=== PATIENT | female | born 1975 ===

== ENCOUNTER 2017-01-02 14:29 | Observation (INO) | payer OTHER ==
[2017-01-02 14:40] VITALS: RESP 20; O2SAT 100
[2017-01-02 15:53] LABS: URINE BILIRUBIN NEGATIVE (NEGATIVE); URINE BLOOD 1+ (NEGATIVE); URINE COLOR Straw (YELLOW); URINE GLUCOSE (UA) NORMAL (Normal); URINE KETONE NEGATIVE (NEGATIVE); URINE LEUKOCYTE ESTERASE NEG Leu/uL (Negative); URINE PROTEIN NEGATIVE (NEGATIVE); URINE UROBILINOGEN NORMAL mg/dL (0.2-1.0); WBC URINE < 1 /hpf (0-5)
[2017-01-02 15:55] LABS: RBC URINE 5 /hpf (0-3); URINE BACTERIA RARE (<OCC)
[2017-01-02] MEDS ORDERED: Sodium Chloride 0.9% 1,000 ML IV ONE (16:02)
[2017-01-02] MEDS ORDERED: Iohexol 240 (50 ml) PO STA (16:02)
--- NOTE | 2017-01-02 16:02 | C.PDOC ---
History Of Present Illness 41-year-old female, presents to the emergency department with complaints of abdominal pain. Patient states she has been experiencing two-week duration of abdominal pain in lower quadrants. Pain is intermittent in nature and associated with nausea. Patient states she has a Hx of L oopherectomy. LNMP was 12/17. Denies fevers, vomiting, dizziness, diarrhea, vaginal bleeding, chills, or any other associated symptoms. No other complaints at this time. Time Seen by Provider: 01/02/17 15:23 Chief Complaint (Nursing): Abdominal Pain History Per: Patient History/Exam Limitations: no limitations Onset/Duration Of Symptoms: Days Current Symptoms Are (Timing): Still Present Severity: Moderate Location Of Pain/Discomfort: RLQ, LLQ Past Medical History Reviewed: Historical Data, Nursing Documentation, Vital Signs Vital Signs: Last Vital Signs Temp 98.6 F 01/02/17 14:39 Pulse 75 01/02/17 14:39 Resp 20 01/02/17 14:39 BP 101/65 01/02/17 14:39 Pulse Ox 100 01/02/17 16:33 Surgical History: Family History: States: Unknown Family Hx - Social History Hx Tobacco Use: No Hx Alcohol Use: Yes Hx Substance Use: No - Immunization History Hx Tetanus Toxoid Vaccination: No Hx Influenza Vaccination: No Hx Pneumococcal Vaccination: No Review Of Systems Except As Marked, All Systems Reviewed And Found Negative. Constitutional: Negative for: Fever, Chills Cardiovascular: Negative for: Chest Pain, Palpitations Respiratory: Negative for: Cough, Shortness of Breath Gastrointestinal: Positive for: Nausea, Abdominal Pain. Negative for: Vomiting , Diarrhea Genitourinary: Negative for: Dysuria, Frequency, Vaginal Discharge, Vaginal Bleeding Musculoskeletal: Negative for: Back Pain Physical Exam - Physical Exam Appears: Non-toxic, No Acute Distress Skin: Warm, Dry, No Rash Head: Atraumatic, Normacephalic Eye(s): bilateral: Normal Inspection, PERRL, EOMI Nose: Normal Oral Mucosa: Moist Lips: Normal Appearing Neck: Normal ROM Chest: Symmetrical Cardiovascular: Rhythm Regular Respiratory: No Accessory Muscle Use Gastrointestinal/Abdominal: Soft, Tenderness (MILD TENDERNESS IN LLQ), No Guarding, No Rebound Extremity: Normal ROM Neurological/Psych: Oriented x3, Normal Speech ED Course And Treatment - Laboratory Results Result Diagrams: 01/02/17 16:27 01/02/17 16:27 O2 Sat by Pulse Oximetry: 100 ED OBSERVATION Discharge: Yes Date of observation admission: 01/02/17 Time of observation admission: 15:00 - Observation admission statement Patient is being placed in observation because:: ABD PAIN - Goals of Observation Goals of observation are:: NEG ACUTE ABD; SX IMPROVE - Progress Note Progress Note: 01/02/17 18:30 EXAM NEG NAD APPEARS COMFORTABLE. CT, LABS WNL. ADVISED FU OBGYN Disposition Counseled Patient/Family Regarding: Studies Performed, Diagnosis, Need For Followup - Disposition Disposition: HOME/ ROUTINE Disposition Time: 18:31 Condition: GOOD - Clinical Impression Clinical Impression: Abdominal pain - Scribe Statement The provider has reviewed the documentation as recorded by the Savita Pinzon All medical record entries made by the Katelynibamanda were at my direction and personally dictated by me. I have reviewed the chart and agree that the record accurately reflects my personal performance of the history, physical exam, medical decision making, and the department course for this patient. I have also personally directed, reviewed, and agree with the discharge instructions and disposition.
[2017-01-02] MEDS ORDERED: Iohexol 240 (50 ml) ONE (16:12)
[2017-01-02] MEDS ORDERED: Morphine 4 MG/ML VIAL ONE (16:12)
[2017-01-02] MEDS ORDERED: Sodium Chloride 0.9% 1,000 ML ONE (16:12)
[2017-01-02 16:40] LABS: BASO # 0.1 K/uL (0.0-0.2); BASO % 0.8 % (0.0-2.0); EOS # 0.2 K/uL (0.0-0.7); EOS % 2.1 % (0.0-4.0); HEMATOCRIT 34.5 % (34.0-47.0); LYMPH # 2.4 K/uL (1.0-4.3); LYMPH % 33.1 % (20.0-40.0); MEAN CORPUSCULAR HEMOGLOBIN 28.4 pg (27.0-31.0); MEAN CORPUSCULAR HGB CONC 32.7 g/dL (33.0-37.0); MONO # 0.5 K/uL (0.0-0.8); MONO % 7.1 % (0.0-10.0); RED CELL DISTRIBUTION WIDTH 14.3 % (11.5-14.5); WHITE BLOOD COUNT 7.3 K/uL (4.8-10.8)
[2017-01-02 16:49] LABS: CHLORIDE 99 mmol/L (98-107); SODIUM 138 mmol/L (132-148)
[2017-01-02 16:51] LABS: BILIRUBIN,TOTAL 0.2 mg/dL (0.2-1.3); CARBON DIOXIDE 29 mmol/L (22-30); GFR AFRICAN-AMERICAN > 60
[2017-01-02 16:52] LABS: ALB/GLOB RATIO 1.2 (1.0-2.1); ALKALINE PHOSPHATASE 51 U/L (38-126); ALT/SGPT 21 U/L (9-52); AST/SGOT 22 U/L (14-36); BLOOD UREA NITROGEN 8 mg/dL (7-17); CALCIUM 8.3 mg/dl (8.6-10.4); GLUCOSE,RANDOM 106 mg/dL (65-105); TOTAL PROTEIN 6.9 g/dL (6.3-8.3)
[2017-01-02] MEDS ORDERED: Iohexol 300 100 ML IJ ONE (17:12)
--- NOTE | 2017-01-02 18:06 | CT ---
PROCEDURE: CT Abdomen and Pelvis with oral and IV contrast. HISTORY: abd pain LLQ PAIN; R OOPHRECTOMY COMPARISON: Abdominal ultrasound performed 09/12/16 TECHNIQUE: Contiguous axial images of the abdomen and pelvis. Oral and IV contrast was administered. Coronal and Sagittal reformats generated and reviewed. Contrast dose: 100 cc Omnipaque 300 Radiation dose: Total exam DLP = 759.23 mGy-cm. FINDINGS: LOWER THORAX: No visible consolidation, pleural effusion, or pneumothorax. LIVER: Hypoattenuation of the liver compatible with hepatic steatosis. GALLBLADDER AND BILE DUCTS: Unremarkable. PANCREAS: Unremarkable. SPLEEN: At least 3 sub cm probable splenules. Otherwise unremarkable. ADRENALS: Unremarkable. KIDNEYS AND URETERS: The kidneys enhance symmetrically. No hydronephrosis or obstructing renal calculus. BLADDER: Distended urinary bladder. REPRODUCTIVE: Uterus is present. APPENDIX: The appendix appears within normal limits of caliber. No secondary signs of acute appendicitis. BOWEL: The stomach is nondistended. The bowel loops appear within normal limits of caliber without evidence of intestinal obstruction. PERITONEUM: Small pelvic free fluid. No definite free air. LYMPH NODES: No bulky lymphadenopathy identified. VASCULATURE: No aortic aneurysm. BONES: No acute osseous abnormality is detected. OTHER FINDINGS: None. IMPRESSION: Hepatic steatosis. Small pelvic free fluid, likely physiologic.
[2017-01-02 18:54] VITALS: BP 97/67; PULSE 50; TEMP 98.4
== END 2017-01-02 18:31 | disposition home or self-care (01) ==
LOC: C.ER 14:29 → C.9OBSV 15:00
PROVIDERS: ADMIT Emergency Medicine; ATTEND Emergency Medicine
DX: R10.30 Lower abdominal pain, unspecified (principal); R11.0 Nausea; Z90.721 Acquired absence of ovaries, unilateral

== ENCOUNTER 2018-12-08 16:13 | Outpatient (CLI) | payer OTHER | END 2018-12-08 16:14 | disposition home or self-care (01) | LOC: C.MAMMO 16:13 | DX: Z12.31 Encounter for screening mammogram for malignant neoplasm of breast (principal) ==

== ENCOUNTER 2018-12-09 08:21 | Outpatient (CLI) | payer OTHER | END 2018-12-09 08:22 | disposition home or self-care (01) | LOC: C.LAB 08:21 | DX: Z01.419 Encounter for gynecological examination (general) (routine) without abnormal findings (principal) ==

== ENCOUNTER 2019-01-24 23:30 | Observation (INO) | payer OTHER ==
[2019-01-25] MEDS ORDERED: Iohexol 240 (50 ml) PO ONE
[2019-01-25] MEDS ORDERED: Sodium Chloride 0.9% 1,000 ML IV ONE ×2 (00:01→03:40)
--- NOTE | 2019-01-25 00:02 | C.PDOC ---
History Of Present Illness 43 year old female presents to the ED c/o periumbilical abdominal pain associated with nausea and diarrhea. Patient denies fever, chills, vomit, rash, dysuria, hematuria, recent travel. Chief Complaint (Nursing): Abdominal Pain History Per: Patient History/Exam Limitations: no limitations Onset/Duration Of Symptoms: Days Current Symptoms Are (Timing): Still Present Location Of Pain/Discomfort: RLQ, LLQ Radiation Of Pain To:: None Quality Of Discomfort: "Pain" Associated Symptoms: Nausea, Diarrhea. denies: Vomiting, Urinary Symptoms Recent travel outside of the [place]: No Additional History Per: Patient Abnormal Vaginal Bleeding: No Past Medical History Reviewed: Historical Data, Nursing Documentation, Vital Signs Vital Signs: Last Vital Signs Temp 98.2 F 01/24/19 23:32 Pulse 65 01/24/19 23:32 Resp 18 01/24/19 23:32 BP 107/70 01/24/19 23:32 Pulse Ox 99 01/24/19 23:32 - Medical History PMH: No Chronic Diseases Surgical History: Family History: States: Unknown Family Hx - Social History Hx Tobacco Use: No Hx Alcohol Use: Yes Hx Substance Use: No - Immunization History Hx Tetanus Toxoid Vaccination: No Hx Influenza Vaccination: No Hx Pneumococcal Vaccination: No Review Of Systems Constitutional: Negative for: Fever, Chills Cardiovascular: Negative for: Chest Pain Respiratory: Negative for: Shortness of Breath Gastrointestinal: Positive for: Nausea, Abdominal Pain, Diarrhea Genitourinary: Negative for: Dysuria Musculoskeletal: Negative for: Back Pain Skin: Negative for: Rash Neurological: Negative for: Weakness, Numbness Physical Exam - Physical Exam Appears: Non-toxic, In Acute Distress Skin: Normal Color, Warm, Dry Head: Atraumatic, Normacephalic Eye(s): bilateral: Normal Inspection Neck: Normal ROM, Supple Chest: Symmetrical Cardiovascular: Rhythm Regular Respiratory: Normal Breath Sounds, No Rales, No Rhonchi, No Wheezing Gastrointestinal/Abdominal: Soft, Tenderness (periumbilical and bilateral lower quadrants R>L), No Guarding, No Rebound Back: No CVA Tenderness Extremity: Normal ROM, No Tenderness, No Swelling Neurological/Psych: Oriented x3, Normal Speech, Normal Cognition Gait: Steady ED Course And Treatment - Laboratory Results Result Diagrams: 01/25/19 00:29 01/25/19 00:29 O2 Sat by Pulse Oximetry: 99 (ON RA) Pulse Ox Interpretation: Normal Medical Decision Making Medical Decision Making: Plan: * CT abd/pelvis * Labs * IV fluids * Toradol 30 mg IVP * UA Disposition Discussed With : Alen Casey Doctor Will See Patient In The: Hospital Counseled Patient/Family Regarding: Diagnosis - Disposition Disposition: HOSPITALIZED Disposition Time: 03:55 Condition: STABLE - Clinical Impression Clinical Impression: Diarrhea, Inflammatory bowel disease, Abdominal pain - Scribe Statement The provider has reviewed the documentation as recorded by the Scribe Fred Keen All medical record entries made by the Katelynibe were at my direction and personally dictated by me. I have reviewed the chart and agree that the record accurately reflects my personal performance of the history, physical exam, medical decision making, and the department course for this patient. I have also personally directed, reviewed, and agree with the discharge instructions and disposition.
[2019-01-25] MEDS ORDERED: Iohexol 240 (50 ml) ONE (00:15)
[2019-01-25] MEDS ORDERED: Sodium Chloride 0.9% 1,000 ML ONE (00:15)
[2019-01-25 00:33] LABS: BASO % 0.4 % (0.0-2.0); EOS # 0.2 K/uL (0.0-0.7); EOS % 2.5 % (0.0-4.0); HEMOGLOBIN 13.1 g/dL (11.0-16.0); LYMPH # 1.2 K/uL (1.0-4.3); LYMPH % 19.8 % (20.0-40.0); MEAN CELL VOLUME 91.8 fL (81.0-99.0); MEAN CORPUSCULAR HEMOGLOBIN 31.5 pg (27.0-31.0); MEAN CORPUSCULAR HGB CONC 34.4 g/dL (33.0-37.0); MEAN PLATELET VOLUME 7.6 fL (7.2-11.7); MONO # 0.6 K/uL (0.0-0.8); MONO % 9.3 % (0.0-10.0); NEUT # 4.3 K/uL (1.8-7.0); NRBC % 0.1 % (0.0-2.0); RBC 4.14 Mil/uL (3.80-5.20); RED CELL DISTRIBUTION WIDTH 13.9 % (11.5-14.5); WHITE BLOOD COUNT 6.3 K/uL (4.8-10.8)
[2019-01-25 00:39] LABS: SQUAMOUS EPITHIAL 17 /hpf (0-5); URINE BACTERIA RARE (<OCC)
[2019-01-25 00:40] LABS: HCG,QUALITATIVE URINE NEGATIVE (NEGATIVE)
[2019-01-25 00:41] LABS: URINE BILIRUBIN NEGATIVE (NEGATIVE); URINE BLOOD MODERATE (NEGATIVE); URINE CLARITY Hazy (Clear); URINE COLOR YELLOW (YELLOW); URINE GLUCOSE (UA) NEGATIVE (Normal); URINE PROTEIN NEGATIVE (NEGATIVE); URINE UROBILINOGEN 0.2 mg/dL (0.2-1.0)
[2019-01-25 00:42] LABS: URINE LEUKOCYTE ESTERASE NEGATIVE Leu/uL (Negative)
[2019-01-25 00:51] LABS: ALB/GLOB RATIO 1.4 (1.0-2.1); ALBUMIN 4.1 g/dL (3.5-5.0); ALT/SGPT 21 U/L (9-52); AST/SGOT 24 U/L (14-36); BLOOD UREA NITROGEN 11 mg/dL (7-17); CALCIUM 8.8 mg/dl (8.6-10.4); GFR NON-AFRICAN AMERICAN > 60; LIPASE 144 U/L (23-300)
[2019-01-25] MEDS ORDERED: Iodixanol 320 MG/ML 100 ML BOTTLE IV ONE (01:25)
--- NOTE | 2019-01-25 04:27 | CP.PCM.HP ---
<Italia Cohen - Last Filed: 01/25/19 04:58> History of Present Illness - History of Present Illness History of Present Illness: cc: "diarrhea" Ms. Donavan Hyatt is a 43 year old female with no PMH here today for 12+ episodes watery diarrhea x2 days. She tried pepto Bismol and Tylenol to no aid. The pain is concentrated periumbilically with some radiation to the RLQ. The cramping is worse than her period, which finished last week. The diarrhea was initially yellow, then turned green with a few that were almost black. She has an associated dehydration headache as she hasn't been able to eat due to decreased appetite. She's able to drink chicken soup but feels full quickly, and then is hungry shortly later. Admits nausea and dizziness. Denies fever, chills, change in vision or hearing, sore throat, recent sickness, vomiting, chest pain, palpitations. PMH: denies Med: denies All: NKDA PSxHx: C/section, R ovarian removal FamHx: unknown SocHx: social EtOH, denies tobacco, illicit drugs. Lives at home with and kids. Works at a [employer] doing [employer]. Proxy: brother: Pipo Go [phone] Full Code Present on Admission - Present on Admission Any Indicators Present on Admission: No Review of Systems - Constitutional Constitutional: Headache. absent: Chills, Fever - EENT Eyes: absent: Blurred Vision Ears: Dizziness. absent: Decreased Hearing, Tinnitus Nose/Mouth/Throat: absent: Sore Throat - Cardiovascular Cardiovascular: absent: Chest Pain, Palpitations - Respiratory Respiratory: absent: Cough, Dyspnea, Wheezing - Gastrointestinal Gastrointestinal: Diarrhea, Nausea. absent: Constipation, Vomiting - Genitourinary Genitourinary: Voiding Freq/Small Amts. absent: Dysuria - Musculoskeletal Musculoskeletal: absent: Joint Swelling, Numbness, Stiffness, Tingling - Integumentary Integumentary: absent: Swelling - Neurological Neurological: absent: Numbness, Tingling - Hematologic/Lymphatic Hematologic: absent: Easy Bruising Past Patient History - Infectious Disease Hx of Infectious Diseases: None - Past Social History Smoking Status: Never Smoked Alcohol: None Drugs: Denies Home Situation {Lives}: With Family - PSYCHIATRIC Hx Substance Use: No - SURGICAL HISTORY Hx Surgeries: Yes Hx Section: Yes (2011) Other/Comment: Left oopehrectomy 2007 - ANESTHESIA Hx Anesthesia: Yes Hx Anesthesia Reactions: No Meds Home Medications: Home Medication List Medication Instructions Recorded Confirmed Type Ciprofloxacin [Cipro] 1 tab PO BID #14 tab 01/25/19 Rx Metronidazole [Flagyl] 250 mg PO BID #10 tablet 01/25/19 Rx Allergies/Adverse Reactions: Allergies Allergy/AdvReac Type Severity Reaction Status Date / Time No Known Allergies Allergy Verified 01/24/19 23:34 Physical Exam - Constitutional Appears: Non-toxic, No Acute Distress - Head Exam Head Exam: ATRAUMATIC, NORMOCEPHALIC - Eye Exam Eye Exam: EOMI, Normal appearance, PERRL Pupil Exam: NORMAL ACCOMODATION - ENT Exam ENT Exam: Mucous Membranes Dry - Neck Exam Neck exam: Positive for: Normal Inspection. Negative for: Lymphadenopathy, Tenderness - Respiratory Exam Respiratory Exam: Clear to Auscultation Bilateral, NORMAL BREATHING PATTERN. absent: Rales, Rhonchi, Wheezes - Cardiovascular Exam Cardiovascular Exam: REGULAR RHYTHM, +S1, +S2. absent: Gallop, Rubs, Systolic Murmur - GI/Abdominal Exam GI & Abdominal Exam: Hyperactive Bowel Sounds, Soft, Tenderness. absent: Distended, Guarding, Rebound Additional comments: TTP in periumbical region and RLQ - Rectal Exam Rectal Exam: Deferred, NORMAL INSPECTION - Extremities Exam Extremities exam: Positive for: full ROM, normal capillary refill, normal ins pection - Back Exam Back exam: absent: CVA tenderness (L), CVA tenderness (R) - Neurological Exam Neurological exam: Alert, CN II-XII Intact, Normal Gait, Oriented x3, Reflexes Normal - Psychiatric Exam Psychiatric exam: Normal Affect, Normal Mood - Skin Skin Exam: Dry, Normal Color, Warm Results - Vital Signs Recent Vital Signs: Last Vital Signs Temp 98.0 F 01/25/19 04:24 Pulse 60 01/25/19 04:24 Resp 18 01/25/19 04:24 BP 98/61 L 01/25/19 04:24 Pulse Ox 99 01/25/19 04:24 - Labs Result Diagrams: 01/25/19 00:29 01/25/19 00:29 Labs: Laboratory Results - last 24 hr 01/25/19 01/25/19 01/25/19 00:29 00:29 00:29 WBC 6.3 RBC 4.14 Hgb 13.1 Hct 38.0 MCV 91.8 MCH 31.5 H MCHC 34.4 RDW 13.9 Plt Count 255 MPV 7.6 Neut % (Auto) 68.0 Lymph % (Auto) 19.8 L [place] % (Auto) 9.3 Eos % (Auto) 2.5 Baso % (Auto) 0.4 Neut # (Auto) 4.3 Lymph # (Auto) 1.2 [place] # (Auto) 0.6 Eos # (Auto) 0.2 Baso # (Auto) 0.0 Sodium 138 Potassium 3.7 Chloride 106 Carbon Dioxide 26 Anion Gap 10 BUN 11 Creatinine 0.7 Est GFR ( Amer) > 60 Est GFR (Non-Af Amer) > 60 Random Glucose 101 Calcium 8.8 Total Bilirubin 0.5 AST 24 ALT 21 Alkaline Phosphatase 88 Total Protein 7.2 Albumin 4.1 Globulin 3.0 Albumin/Globulin Ratio 1.4 Lipase 144 Urine Color Yellow Urine Clarity Hazy Urine pH 6.0 Ur Specific [place] 1.030 Urine Protein Negative Urine Glucose (UA) Negative Urine Ketones Negative Urine Blood Moderate Urine Nitrate Negative Urine Bilirubin Negative Urine Urobilinogen 0.2 Ur Leukocyte Esterase Negative Urine WBC (Auto) 5 Urine RBC (Auto) 16 H Ur Squamous Epith Cells 17 H Urine Bacteria Rare Urine HCG, Qual Negative Assessment & Plan - Assessment and Plan (Free Text) Assessment: 43yo F with no PMH admitted for ileitis. Plan: Ileitis CT A/P with PO and IV contrast (01/24): pending read. prelim: mild thickening ileal small bowel loops, ileitis. No appendicitis. Cipro 500mg PO, Flagyl 500mg PO Toradol 30 IVP, 2L NS given in ED - f/u stool studies - Cipro 200 IVPB q12 (started 01/25) - Flagyl 500 IVPB q8 (started 01/25) - Lactobacillus 1 cap po BID - Tylenol 650mg po q6 prn - NPO except medications PPx - DVT: Heparin 5000u SC q8, SCDs - Diet: NPO except medications - IVF: NS@115 d/w Dr. Carmela Cohen PGY-1 - Date & Time Date: 01/25/19 Time: 04:15 <Alen Casey A - Last Filed: 01/25/19 06:57> Results - Vital Signs Recent Vital Signs: Last Vital Signs Temp 98.1 F 01/25/19 04:48 Pulse 55 L 01/25/19 04:48 Resp 18 01/25/19 04:48 BP 103/64 01/25/19 04:48 Pulse Ox 99 01/25/19 04:48 - Labs Result Diagrams: 01/25/19 00:29 01/25/19 00:29 Labs: Laboratory Results - last 24 hr 01/25/19 01/25/19 01/25/19 00:29 00:29 00:29 WBC 6.3 RBC 4.14 Hgb 13.1 Hct 38.0 MCV 91.8 MCH 31.5 H MCHC 34.4 RDW 13.9 Plt Count 255 MPV 7.6 Neut % (Auto) 68.0 Lymph % (Auto) 19.8 L [place] % (Auto) 9.3 Eos % (Auto) 2.5 Baso % (Auto) 0.4 Neut # (Auto) 4.3 Lymph # (Auto) 1.2 [place] # (Auto) 0.6 Eos # (Auto) 0.2 Baso # (Auto) 0.0 Sodium 138 Potassium 3.7 Chloride 106 Carbon Dioxide 26 Anion Gap 10 BUN 11 Creatinine 0.7 Est GFR ( Amer) > 60 Est GFR (Non-Af Amer) > 60 Random Glucose 101 Calcium 8.8 Total Bilirubin 0.5 AST 24 ALT 21 Alkaline Phosphatase 88 Total Protein 7.2 Albumin 4.1 Globulin 3.0 Albumin/Globulin Ratio 1.4 Lipase 144 Urine Color Yellow Urine Clarity Hazy Urine pH 6.0 Ur Specific [place] 1.030 Urine Protein Negative Urine Glucose (UA) Negative Urine Ketones Negative Urine Blood Moderate Urine Nitrate Negative Urine Bilirubin Negative Urine Urobilinogen 0.2 Ur Leukocyte Esterase Negative Urine WBC (Auto) 5 Urine RBC (Auto) 16 H Ur Squamous Epith Cells 17 H Urine Bacteria Rare Urine HCG, Qual Negative Assessment & Plan - Date & Time Date: 01/25/19 (I have seen and examined the patient. I agree with the findings and plan of care as documented by Dr. Cohen. Patient with Ileitis. Cipro and Flagyl. Symptomatic treatment. Monitor for acute changes.) Time: 06:56 Attending/Attestation - Attestation I have personally seen and examined this patient.: Yes I have fully participated in the care of the patient.: Yes I have reviewed all pertinent clinical information: Yes
[2019-01-25] MEDS ORDERED: Sodium Chloride 0.9% 1,000 ML IV SCH (04:45)
[2019-01-25] MEDS: metroNIDAZOLE IV 500 mg/100 ml 500 MG/100 ML BAG IVPB SCH ×3 (05:30→20:42)
[2019-01-25] MEDS: Ciprofloxacin 200mg/100ml D5W 100 ML IVPB SCH ×2 (06:43→16:56)
--- NOTE | 2019-01-25 08:00 | CP.PCM.PN ---
<Keanu Shi - Last Filed: 01/25/19 17:55> Subjective - Date & Time of Evaluation Date of Evaluation: 01/25/19 Time of Evaluation: 08:00 - Subjective Subjective: PGY-[address] Alfa Rosenbaum Patient is seen and examined at bedside. Patient admits to improvement of her symptoms that were present in admission. Improved umbilical area pain, denies any new episodes of diarrhea, denies fevers, chills, dizziness, chest pain, sob, nausea, vomiting, back pain, urinary symptoms, back pain. patient is currently NPO. Objective - Vital Signs/Intake and Output Vital Signs (last 24 hours): Temp Pulse Resp BP Pulse Ox 98.1 F 55 L 18 103/64 99 01/25/19 04:48 01/25/19 04:48 01/25/19 04:48 01/25/19 04:48 01/25/19 04:48 Intake and Output: 01/25/19 01/25/19 06:59 18:59 Intake Total 100 Balance 100 - Medications Medications: Current Medications Acetaminophen (Tylenol 325mg Tab) 650 mg PO Q6 PRN PRN Reason: Pain, moderate (4-7) Heparin Sodium (Porcine) (Heparin) 5,000 units SC Q8 KARON Last Admin: 01/25/19 05:50 Dose: 5,000 units Sodium Chloride (Sodium Chloride 0.9%) 1,000 mls @ 100 mls/hr IV .Q10H ONE Stop: 01/25/19 10:00 Last Admin: 01/25/19 00:23 Dose: 100 mls/hr Sodium Chloride (Sodium Chloride 0.9%) 1,000 mls @ 100 mls/hr IV .Q10H ONE Stop: 01/25/19 13:39 Last Admin: 01/25/19 04:00 Dose: 100 mls/hr Ciprofloxacin (Cipro 200mg/100ml D5w) 100 mls @ 67 mls/hr IVPB Q12H KARON; Protocol Last Admin: 01/25/19 06:43 Dose: 67 mls/hr Metronidazole (Flagyl) 500 mg in 100 mls @ 100 mls/hr IVPB Q8H KARON; Protocol Last Admin: 01/25/19 05:30 Dose: 100 mls/hr Sodium Chloride (Sodium Chloride 0.9%) 1,000 mls @ 115 mls/hr IV .Q8H42M KARON Last Admin: 01/25/19 05:30 Dose: 115 mls/hr Lactobacillus Acidophilus (Lactobacillus) 1 cap PO BID KARON Pneumococcal Polyvalent Vaccine (Pneumovax 23 Vaccine) 0.5 ml IM .ONCE ONE Stop: 01/27/19 10:01 - Labs Labs: 01/25/19 00:29 01/25/19 00:29 - Constitutional Appears: Non-toxic, No Acute Distress - Head Exam Head Exam: ATRAUMATIC, NORMAL INSPECTION, NORMOCEPHALIC - Eye Exam Eye Exam: EOMI - ENT Exam ENT Exam: Mucous Membranes Moist - Respiratory Exam Respiratory Exam: Clear to Ausculation Bilateral, NORMAL BREATHING PATTERN. absent: Rales, Rhonchi, Wheezes - GI/Abdominal Exam GI & Abdominal Exam: Soft, Normal Bowel Sounds. absent: Distended, Guarding, Rigid - Extremities Exam Extremities Exam: Full ROM, Normal Inspection - Back Exam Back Exam: Full ROM, NORMAL INSPECTION - Neurological Exam Neurological Exam: Alert, Awake, Oriented x3 - Psychiatric Exam Psychiatric exam: Normal Affect, Normal Mood - Skin Skin Exam: Dry, Intact, Normal Color, Warm Assessment and Plan - Assessment and Plan (Free Text) Assessment: 43yo F with no PMH admitted for ileitis. Plan: Ileitis CT A/P with PO and IV contrast (01/24): Findings are most compatible with acute nonspecific infectious/inflammatory segmental ileitis involving distal ileum in the right lower quadrant. Clinical follow-up is advised. Mild hepatomegaly and fatty liver. Cipro 500mg PO, Flagyl 500mg PO Toradol 30 IVP, 2L NS given in ED - Cipro 200 IVPB q12 (started 01/25) - Flagyl 500 IVPB q8 (started 01/25) - Lactobacillus 1 cap po BID - Tylenol 650mg po q6 prn - NPO except medications - will consider advancing diet if symptoms improve or resolve - f/u stool studies - giardia, stool, ova and parasite, fecal Leukocytes PPx - DVT: Heparin 5000u SC q8, SCDs - Diet: NPO except medications - IVF: NS@[address] Ilsa Shi, PGY-1 <Alfa Rosenbaum - Last Filed: 01/26/19 07:13> Objective - Vital Signs/Intake and Output Vital Signs (last 24 hours): Temp Pulse Resp BP Pulse Ox 98.4 F 60 20 100/59 L 98 01/25/19 23:10 01/26/19 06:32 01/25/19 23:10 01/26/19 06:32 01/25/19 23:10 Intake and Output: 01/26/19 01/26/19 06:59 18:59 Intake Total 1200 Balance 1200 - Medications Medications: Current Medications Acetaminophen (Tylenol 325mg Tab) 650 mg PO Q6 PRN PRN Reason: Pain, moderate (4-7) Last Admin: 01/25/19 21:22 Dose: 650 mg Heparin Sodium (Porcine) (Heparin) 5,000 units SC Q8 KARON Last Admin: 01/26/19 06:21 Dose: 5,000 units Ciprofloxacin (Cipro 200mg/100ml D5w) 100 mls @ 67 mls/hr IVPB Q12H KARON; Protocol Last Admin: 01/26/19 04:52 Dose: 67 mls/hr Metronidazole (Flagyl) 500 mg in 100 mls @ 100 mls/hr IVPB Q8H KARON; Protocol Last Admin: 01/26/19 03:47 Dose: 100 mls/hr Sodium Chloride (Sodium Chloride 0.9%) 1,000 mls @ 150 mls/hr IV .Q6H40M KARON Last Admin: 01/25/19 23:55 Dose: Not Given Lactobacillus Acidophilus (Lactobacillus) 1 cap PO BID KARON Last Admin: 01/25/19 17:03 Dose: 1 cap Pneumococcal Polyvalent Vaccine (Pneumovax 23 Vaccine) 0.5 ml IM .ONCE ONE Stop: 01/27/19 10:01 - Labs Labs: 01/25/19 00:29 01/25/19 00:29 Attending/Attestation - Attestation I have personally seen and examined this patient.: Yes I have fully participated in the care of the patient.: Yes I have reviewed all pertinent clinical information, including history, physical exam and plan: Yes Notes (Text): Medical attending: Patient was seen and examined by me. Agree with the above note by the resident The patient was not in any acute distress, however she did explain via help of translation that she still had some mild abodminal pain For the time being will continue with the Cipro and Flagyl IV Also pending stool studies as well. IVF at the moment and NPO, if later she does ok then will consider starting a CLD and advancing as tolerated. Alfa Rosenbaum
[2019-01-25] MEDS: Lactobacillus Acidophilus 500 MU Cap PO SCH ×2 (09:25→17:03)
--- NOTE | 2019-01-25 10:14 | CT ---
Date of service: 01/25/2019 PROCEDURE: CT Abdomen and Pelvis with contrast HISTORY: Abdominal pain COMPARISON: 01/02/2017. TECHNIQUE: CT scan of the abdomen and pelvis was performed after administration of intravenous contrast. Oral contrast was administered. Coronal and sagittal reformatted images were obtained. Contrast dose: 100 mL Visipaque 320 Radiation dose: Total exam DLP = 1016.61 mGy-cm. This CT exam was performed using one or more of the following dose reduction techniques: Automated exposure control, adjustment of the mA and/or kV according to patient size, and/or use of iterative reconstruction technique. FINDINGS: LOWER THORAX: The visualized lungs are clear. LIVER: Mild hepatomegaly and diffuse fatty liver. Homogeneous enhancement. No gross lesion or ductal dilatation. GALLBLADDER AND BILE DUCTS: The gallbladder is contracted the. No calcified gallstones, wall thickening or pericholecystic fluid. PANCREAS: Normal in size with homogeneous enhancement. No gross lesion or ductal dilatation. SPLEEN: Normal in size and appearance. ADRENALS: No discrete nodule. KIDNEYS AND URETERS: Normal in size with homogeneous enhancement. No hydronephrosis. No solid mass. VASCULATURE: No aortic aneurysm. There are no aortic atherosclerotic calcifications or mural plaque present. BOWEL: The proximal small bowel loops are normal in caliber. There is segmental mild circumferential mural thickening in a distal ileal loops in the right lower quadrant. The colon is grossly normal in appearance. No bowel wall thickening or obstruction. APPENDIX: Normal appendix. PERITONEUM: No free fluid. No free air. LYMPH NODES: No enlarged lymph nodes. BLADDER: Well distended and normal in appearance. REPRODUCTIVE: The uterus is normal in size. BONES: No acute fracture. Within normal limits for the patient's age. OTHER FINDINGS: None. IMPRESSION: Findings are most compatible with acute nonspecific infectious/inflammatory segmental ileitis involving distal ileum in the right lower quadrant. Clinical follow-up is advised. Mild hepatomegaly and fatty liver. A preliminary report was provided by [employer]
[2019-01-25] MEDS: Sodium Chloride 0.9% 1,000 ML IV SCH ×3 (10:42→23:55)
[2019-01-26] MEDS: metroNIDAZOLE IV 500 mg/100 ml 500 MG/100 ML BAG IVPB SCH ×4 (03:47→19:45)
[2019-01-26] MEDS: Ciprofloxacin 200mg/100ml D5W 100 ML IVPB SCH ×2 (04:52→17:49)
[2019-01-26 07:09] LABS: BASO % 0.5 % (0.0-2.0); EOS # 0.1 K/uL (0.0-0.7); EOS % 2.1 % (0.0-4.0); HEMOGLOBIN 11.8 g/dL (11.0-16.0); LYMPH # 1.4 K/uL (1.0-4.3); LYMPH % 23.4 % (20.0-40.0); MEAN CELL VOLUME 91.3 fL (81.0-99.0); MEAN CORPUSCULAR HEMOGLOBIN 31.4 pg (27.0-31.0); MEAN CORPUSCULAR HGB CONC 34.4 g/dL (33.0-37.0); MEAN PLATELET VOLUME 7.8 fL (7.2-11.7); MONO # 0.5 K/uL (0.0-0.8); MONO % 7.9 % (0.0-10.0); NEUT % 66.1 % (50.0-75.0); RBC 3.74 Mil/uL (3.80-5.20); RED CELL DISTRIBUTION WIDTH 13.9 % (11.5-14.5); WHITE BLOOD COUNT 6.1 K/uL (4.8-10.8)
[2019-01-26 07:54] LABS: ALB/GLOB RATIO 1.3 (1.0-2.1); ALBUMIN 3.6 g/dL (3.5-5.0); ALT/SGPT 30 U/L (9-52); AST/SGOT 27 U/L (14-36); BLOOD UREA NITROGEN 5 mg/dL (7-17); CALCIUM 8.1 mg/dl (8.6-10.4); GFR NON-AFRICAN AMERICAN > 60
[2019-01-26] MEDS: Sodium Chloride 0.9% 1,000 ML IV SCH (08:28)
[2019-01-26] MEDS: Lactobacillus Acidophilus 500 MU Cap PO SCH ×2 (09:57→17:47)
[2019-01-26] MEDS ORDERED: Potassium Chloride 20 mEq ER Tab PO ONE (10:28)
--- NOTE | 2019-01-26 10:29 | CP.PCM.PN ---
<Keanu Shi - Last Filed: 01/26/19 13:24> Subjective - Date & Time of Evaluation Date of Evaluation: 01/26/19 Time of Evaluation: 08:00 - Subjective Subjective: PGY-[address] Alfa Rosenbaum Patient is seen and examined at bedside. Patient states her abdominal pain has improved, denies any episodes of diarrhea, last episode was yesterday and was significantly decreased in quantity and severity. Patient denies fever, chills, chest pain, sob, nausea, vomiting, diarrhea, constipation, urinary complaints. Patient is currently npo, is out of bed and ambulating. Objective - Vital Signs/Intake and Output Vital Signs (last 24 hours): Temp Pulse Resp BP Pulse Ox 98.4 F 60 20 100/59 L 98 01/25/19 23:10 01/26/19 06:32 01/25/19 23:10 01/26/19 06:32 01/25/19 23:10 Intake and Output: 01/26/19 01/26/19 06:59 18:59 Intake Total 1200 Balance 1200 - Medications Medications: Current Medications Acetaminophen (Tylenol 325mg Tab) 650 mg PO Q6 PRN PRN Reason: Pain, moderate (4-7) Last Admin: 01/25/19 21:22 Dose: 650 mg Heparin Sodium (Porcine) (Heparin) 5,000 units SC Q8 KARON Last Admin: 01/26/19 06:21 Dose: 5,000 units Ciprofloxacin (Cipro 200mg/100ml D5w) 100 mls @ 67 mls/hr IVPB Q12H KARON; Protocol Last Admin: 01/26/19 04:52 Dose: 67 mls/hr Metronidazole (Flagyl) 500 mg in 100 mls @ 100 mls/hr IVPB Q8H KARON; Protocol Last Admin: 01/26/19 03:47 Dose: 100 mls/hr Sodium Chloride (Sodium Chloride 0.9%) 1,000 mls @ 150 mls/hr IV .Q6H40M KARON Last Admin: 01/26/19 08:28 Dose: 150 mls/hr Lactobacillus Acidophilus (Lactobacillus) 1 cap PO BID KARON Last Admin: 01/26/19 09:57 Dose: 1 cap Pneumococcal Polyvalent Vaccine (Pneumovax 23 Vaccine) 0.5 ml IM .ONCE ONE Stop: 01/27/19 10:01 Potassium Chloride (K-Dur 20 Meq Er Tab) 20 meq PO ONCE ONE Stop: 01/26/19 10:29 - Labs Labs: 01/26/19 06:58 01/26/19 06:58 - Constitutional Appears: Non-toxic, No Acute Distress - Head Exam Head Exam: ATRAUMATIC, NORMAL INSPECTION, NORMOCEPHALIC - Eye Exam Eye Exam: EOMI - ENT Exam ENT Exam: Mucous Membranes Moist - Neck Exam Neck Exam: Full ROM, Normal Inspection - Respiratory Exam Respiratory Exam: Clear to Ausculation Bilateral, NORMAL BREATHING PATTERN. absent: Rales, Rhonchi, Wheezes - Cardiovascular Exam Cardiovascular Exam: REGULAR RHYTHM, +S1, +S2 - GI/Abdominal Exam GI & Abdominal Exam: Soft, Normal Bowel Sounds. absent: Distended, Tenderness - Extremities Exam Extremities Exam: Full ROM, Normal Inspection. absent: Tenderness - Back Exam Back Exam: NORMAL INSPECTION - Neurological Exam Neurological Exam: Alert, Awake, Oriented x3 - Psychiatric Exam Psychiatric exam: Normal Affect, Normal Mood - Skin Skin Exam: Dry, Intact, Normal Color, Warm Assessment and Plan - Assessment and Plan (Free Text) Assessment: 43yo F with no PMH admitted for ileitis Plan: Multiple episodes of watery diarrhea, improving Ileitis CT A/P with PO and IV contrast (01/24): Findings are most compatible with acute nonspecific infectious/inflammatory segmental ileitis involving distal ileum in the right lower quadrant. Clinical follow-up is advised. Mild hepatomegaly and fatty liver. Cipro 500mg PO, Flagyl 500mg PO Toradol 30 IVP, 2L NS given in ED - Cipro 200 IVPB q12 (started 01/25) day #2 - Flagyl 500 IVPB q8 (started 01/25) day #2 - Lactobacillus 1 cap po BID - Tylenol 650mg po q6 prn - advance diet to clear liquid diet for lunch - If patient tolerating, diet can be advanced to regular diet - stool leukocytes negative - f/u stool studies - giardia, stool, ova and parasite Hypokalemia - am labs K 3.5 - KCL 20meq PO - replete as needed, will follow up am labs PPx - DVT: Heparin 5000u SC q8, SCDs - Diet: clear liquid diet - IVF: NS@150 Dispo: will advance diet to clear liquid, will follow up with patient and advance to regular diet, if tolerating, patient can be discharge tomorrow. Plan discussed with Dr Ilsa Shi, PGY-1 <Alfa Rosenbaum H - Last Filed: 01/26/19 13:55> Objective - Vital Signs/Intake and Output Vital Signs (last 24 hours): Temp Pulse Resp BP Pulse Ox 98.3 F 62 20 96/52 L 98 01/26/19 07:40 01/26/19 07:40 01/26/19 07:40 01/26/19 07:40 01/26/19 11:25 Intake and Output: 01/26/19 01/26/19 06:59 18:59 Intake Total 1200 Balance 1200 - Medications Medications: Current Medications Acetaminophen (Tylenol 325mg Tab) 650 mg PO Q6 PRN PRN Reason: Pain, moderate (4-7) Last Admin: 01/25/19 21:22 Dose: 650 mg Heparin Sodium (Porcine) (Heparin) 5,000 units SC Q8 KARON Last Admin: 01/26/19 13:19 Dose: 5,000 units Ciprofloxacin (Cipro 200mg/100ml D5w) 100 mls @ 67 mls/hr IVPB Q12H KARON; Protocol Last Admin: 01/26/19 04:52 Dose: 67 mls/hr Metronidazole (Flagyl) 500 mg in 100 mls @ 100 mls/hr IVPB Q8H KARON; Protocol Last Admin: 01/26/19 12:05 Dose: Not Given Sodium Chloride (Sodium Chloride 0.9%) 1,000 mls @ 150 mls/hr IV .Q6H40M KRAON Last Admin: 01/26/19 08:28 Dose: 150 mls/hr Lactobacillus Acidophilus (Lactobacillus) 1 cap PO BID KARON Last Admin: 01/26/19 09:57 Dose: 1 cap Pneumococcal Polyvalent Vaccine (Pneumovax 23 Vaccine) 0.5 ml IM .ONCE ONE Stop: 01/27/19 10:01 - Labs Labs: 01/26/19 06:58 01/26/19 06:58 Attending/Attestation - Attestation I have personally seen and examined this patient.: Yes I have fully participated in the care of the patient.: Yes I have reviewed all pertinent clinical information, including history, physical exam and plan: Yes Notes (Text): 01/26/19 13:54 Medical attending: Patient was seen and examined by me with the medical residents The patient was not in any acute distress she was out of bed to chair, we will advance her diet as tolerated and see how she does The patient remains on the IV abx at this moment. Alfa Rosenbaum
[2019-01-27 02:16] VITALS: O2SAT 97
[2019-01-27] MEDS: metroNIDAZOLE IV 500 mg/100 ml 500 MG/100 ML BAG IVPB SCH (03:56)
[2019-01-27] MEDS: Ciprofloxacin 200mg/100ml D5W 100 ML IVPB SCH (05:07)
[2019-01-27 07:40] LABS: BASO % 0.7 % (0.0-2.0); EOS # 0.2 K/uL (0.0-0.7); EOS % 3.5 % (0.0-4.0); HEMOGLOBIN 11.7 g/dL (11.0-16.0); LYMPH # 1.8 K/uL (1.0-4.3); LYMPH % 35.7 % (20.0-40.0); MEAN CELL VOLUME 91.4 fL (81.0-99.0); MEAN CORPUSCULAR HEMOGLOBIN 30.9 pg (27.0-31.0); MEAN CORPUSCULAR HGB CONC 33.9 g/dL (33.0-37.0); MEAN PLATELET VOLUME 7.6 fL (7.2-11.7); MONO # 0.6 K/uL (0.0-0.8); NEUT # 2.4 K/uL (1.8-7.0); NEUT % 48.1 % (50.0-75.0); RBC 3.79 Mil/uL (3.80-5.20); RED CELL DISTRIBUTION WIDTH 13.6 % (11.5-14.5)
[2019-01-27] MEDS ORDERED: Potassium Chloride 20 mEq ER Tab PO STA ×2 (07:48→09:01)
[2019-01-27 07:50] LABS: ALB/GLOB RATIO 1.4 (1.0-2.1); ALBUMIN 3.7 g/dL (3.5-5.0); ALT/SGPT 29 U/L (9-52); AST/SGOT 45 U/L (14-36); BLOOD UREA NITROGEN 7 mg/dL (7-17); CALCIUM 8.6 mg/dl (8.6-10.4); GFR NON-AFRICAN AMERICAN > 60
[2019-01-27 08:58] VITALS: BP 100/62; PULSE 56; RESP 18; TEMP 98.6
[2019-01-27] MEDS: Lactobacillus Acidophilus 500 MU Cap PO SCH (09:25)
[2019-01-27] MEDS ORDERED: Pneumococcal 23-Valent Vaccine IM ONE (10:00)
--- NOTE | 2019-01-27 11:26 | CP.PCM.DIS ---
<TemojinFrancois - Last Filed: 01/27/19 15:06> Provider - Provider Date of Admission: 01/25/19 03:53 Attending physician: Alfa Rosenbaum DO Time Spent in preparation of Discharge (in minutes): 45 Diagnosis - Discharge Diagnosis (1) Abdominal pain Status: Resolved (2) Diarrhea Status: Resolved Hospital Course - Lab Results Lab Results: Micro Results 01/25/19 15:48 Stool Stool Culture - Final NO SALMONELLA, SHIGELLA OR CAMPYLOBACTER ISOLATED. 01/25/19 15:48 Rectum Ova and Parasite Concentrate Exam - Final Most Recent Lab Values WBC 5.0 K/uL (4.8-10.8) 01/27/19 07:17 RBC 3.79 Mil/uL (3.80-5.20) L 01/27/19 07:17 Hgb 11.7 g/dL (11.0-16.0) 01/27/19 07:17 Hct 34.7 % (34.0-47.0) 01/27/19 07:17 MCV 91.4 fL (81.0-99.0) 01/27/19 07:17 MCH 30.9 pg (27.0-31.0) 01/27/19 07:17 MCHC 33.9 g/dL (33.0-37.0) 01/27/19 07:17 RDW 13.6 % (11.5-14.5) 01/27/19 07:17 Plt Count 262 K/uL (130-400) 01/27/19 07:17 MPV 7.6 fL (7.2-11.7) 01/27/19 07:17 Neut % (Auto) 48.1 % (50.0-75.0) L 01/27/19 07:17 Lymph % (Auto) 35.7 % (20.0-40.0) 01/27/19 07:17 [place] % (Auto) 12.0 % (0.0-10.0) H 01/27/19 07:17 Eos % (Auto) 3.5 % (0.0-4.0) 01/27/19 07:17 Baso % (Auto) 0.7 % (0.0-2.0) 01/27/19 07:17 Neut # (Auto) 2.4 K/uL (1.8-7.0) 01/27/19 07:17 Lymph # (Auto) 1.8 K/uL (1.0-4.3) 01/27/19 07:17 [place] # (Auto) 0.6 K/uL (0.0-0.8) 01/27/19 07:17 Eos # (Auto) 0.2 K/uL (0.0-0.7) 01/27/19 07:17 Baso # (Auto) 0.0 K/uL (0.0-0.2) 01/27/19 07:17 Sodium 137 mmol/L (132-148) 01/27/19 07:17 Potassium 3.6 mmol/L (3.6-5.2) 01/27/19 07:17 Chloride 106 mmol/L (98-107) 01/27/19 07:17 Carbon Dioxide 25 mmol/L (22-30) 01/27/19 07:17 Anion Gap 10 (10-20) 01/27/19 07:17 BUN 7 mg/dL (7-17) 01/27/19 07:17 Creatinine 0.6 mg/dL (0.7-1.2) L 01/27/19 07:17 Est GFR ( Amer) > 60 01/27/19 07:17 Est GFR (Non-Af Amer) > 60 01/27/19 07:17 Random Glucose 98 mg/dL (65-105) 01/27/19 07:17 Calcium 8.6 mg/dl (8.6-10.4) 01/27/19 07:17 Total Bilirubin 0.2 mg/dL (0.2-1.3) 01/27/19 07:17 AST 45 U/L (14-36) H D 01/27/19 07:17 ALT 29 U/L (9-52) 01/27/19 07:17 Alkaline Phosphatase 89 U/L (38-126) 01/27/19 07:17 Total Protein 6.4 g/dL (6.3-8.3) 01/27/19 07:17 Albumin 3.7 g/dL (3.5-5.0) 01/27/19 07:17 Globulin 2.7 gm/dL (2.2-3.9) 01/27/19 07:17 Albumin/Globulin Ratio 1.4 (1.0-2.1) 01/27/19 07:17 Lipase 144 U/L (23-300) 01/25/19 00:29 Urine Color Yellow (YELLOW) 01/25/19 00: Urine Clarity Hazy (Clear) 01/25/19 00:29 Urine pH 6.0 (5.0-8.0) 01/25/19 00:29 Ur Specific [place] 1.030 (1.003-1.030) 01/25/19 00: Urine Protein Negative mg/dL (NEGATIVE) 01/25/19 00: Urine Glucose (UA) Negative mg/dL (Normal) 01/25/19: Urine Ketones Negative mg/dL (NEGATIVE) 01/25/19 00: Urine Blood Moderate (NEGATIVE) 01/25/19 00: Urine Nitrate Negative (NEGATIVE) 01/25/19 00: Urine Bilirubin Negative (NEGATIVE) 01/25/19 00: Urine Urobilinogen 0.2 mg/dL (0.2-1.0) 01/25/19 00:29 Ur Leukocyte Esterase Negative Shruthi/uL (Negative) 01/25/19 00:29 Urine WBC (Auto) 5 /hpf (0-5) 01/25/19 00:29 Urine RBC (Auto) 16 /hpf (0-3) H 01/25/19 00:29 Ur Squamous Epith Cells 17 /hpf (0-5) H 01/25/19 00:29 Urine Bacteria Rare (<OCC) 01/25/19 00: Urine HCG, Qual Negative (NEGATIVE) 01/25/19 00: Stool Leukocytes, Qual Negative (NEGATIVE) 01/25/19 15:48 - Hospital Course Hospital Course: On admission Patient is a 43 year old female with no PMH here today for 12+ episodes watery diarrhea x2 days. She tried pepto Bismol and Tylenol to no aid. The pain is concentrated periumbilically with some radiation to the RLQ. The cramping is worse than her period, which finished last week. The diarrhea was initially yellow, then turned green with a few that were almost black. She has an associated dehydration headache as she hasn't been able to eat due to decreased appetite. She's able to drink chicken soup but feels full quickly, and then is hungry shortly later. Admits nausea and dizziness. Denies fever, chills, change in vision or hearing, sore throat, recent sickness, vomiting, chest pain, palpit ations. On hospitalization Patient admitted for the evaluation of watery diarrhea and abdominal pain. CT a/p with PO and IV contrast shows findings are most compatible with acute nonspecific infectious/inflammatory segmental ileitis involving distal ileum in the right lower quadrant. Clinical follow-up is advised. Mild hepatomegaly and fatty liver. Patient given in ED one dose Cipro 500mg PO, Flagyl 500mg PO Toradol 30 IVP, 2L NS. Patient continued on Cipro and flagyl abx, woith pain med PRN. placed on NPO. Patient's symptoms improved, diet advanced as tolerated. supplemental potassium given to replete potassium levels. On discharge: the following instruction were given to patient 4 day course of Cipro BID and Flagyl q8 Patient is stable to discharge as per Dr Rosenbaum Patient is to follow with PMD within 7-10 weeks after d/c patient can resume regular diet and activity If symptoms recur or worsen, please return to ER immediately Discharge Exam - Head Exam Head Exam: ATRAUMATIC, NORMAL INSPECTION, NORMOCEPHALIC - Additional Findings Additional findings: - Constitutional Appears: Non-toxic, No Acute Distress - Head Exam Head Exam: ATRAUMATIC, NORMAL INSPECTION, NORMOCEPHALIC - Eye Exam Eye Exam: EOMI - ENT Exam ENT Exam: Mucous Membranes Moist - Neck Exam Neck Exam: Full ROM, Normal Inspection - Respiratory Exam Respiratory Exam: Clear to Ausculation Bilateral, NORMAL BREATHING PATTERN. absent: Rales, Rhonchi, Wheezes - Cardiovascular Exam Cardiovascular Exam: REGULAR RHYTHM, +S1, +S2 - GI/Abdominal Exam GI & Abdominal Exam: Soft, Normal Bowel Sounds. absent: Distended, Tenderness - Extremities Exam Extremities Exam: Full ROM, Normal Inspection. absent: Tenderness - Back Exam Back Exam: NORMAL INSPECTION - Neurological Exam Neurological Exam: Alert, Awake, Oriented x3 - Psychiatric Exam Psychiatric exam: Normal Affect, Normal Mood - Skin Skin Exam: Dry, Intact, Normal Color, Warm Discharge Plan - Discharge Medications Prescriptions: Ciprofloxacin HCl [Cipro] 250 mg PO BID #8 tablet Metronidazole [Flagyl] 500 mg PO Q8 #12 tablet - Follow Up Plan Condition: STABLE Disposition: HOME/ ROUTINE Instructions: Diarrhea in Adolescents and Adults, Ciprofloxacin (Systemic), Metronidazole (Systemic), Acute Abdomen (Belly Pain), Adult (DC), Inflammatory Bowel Disease (DC), Rotavirus Infection (DC), Rotavirus Infection (GEN), Acute Abdominal Pain (DC), Acute Abdominal Pain (GEN), Nutrition Tips for Relief of Diarrhea (DC), Nutrition Tips for Relief of Diarrhea (GEN) Additional Instructions: Patient is to be discharged home with the following medications Ciprofloxacin HCl [Cipro] 250 mg PO BID #8 tablet Metronidazole [Flagyl] 500 mg PO Q8 #12 tablet Please complete these antibiotics over the next 4 days Please follow up with your PMD within 7 days of discharge If symptoms return, seek medical attention immediately take care and be well CK PGY1 El paciente debe ser dado de eber con los siguientes medicamentos Ciprofloxacina HCl [Cipro] 250 mg PO BID # 8 comprimido Metronidazol [Flagyl] 500 mg PO Q8 # 12 comprimido Por favor complete estos antibiticos en los prximos 4 soliz Por favor karen un seguimiento con vines PMD dentro de los 7 soliz posteriores al eber. Si los sntomas regresan, busque atencin mdica de inmediato. cuidar y estar kofi CK PGY1 <Alfa Rosenbaum - Last Filed: 01/27/19 15:13> Provider - Provider Date of Admission: 01/25/19 03:53 Attending physician: Alfa Rosenbaum, DO Hospital Course - Lab Results Lab Results: Micro Results 01/25/19 15:48 Stool Stool Culture - Final NO SALMONELLA, SHIGELLA OR CAMPYLOBACTER ISOLATED. 01/25/19 15:48 Rectum Ova and Parasite Concentrate Exam - Final Most Recent Lab Values WBC 5.0 K/uL (4.8-10.8) 01/27/19 07:17 RBC 3.79 Mil/uL (3.80-5.20) L 01/27/19 07:17 Hgb 11.7 g/dL (11.0-16.0) 01/27/19 07:17 Hct 34.7 % (34.0-47.0) 01/27/19 07:17 MCV 91.4 fL (81.0-99.0) 01/27/19 07:17 MCH 30.9 pg (27.0-31.0) 01/27/19 07:17 MCHC 33.9 g/dL (33.0-37.0) 01/27/19 07:17 RDW 13.6 % (11.5-14.5) 01/27/19 07:17 Plt Count 262 K/uL (130-400) 01/27/19 07:17 MPV 7.6 fL (7.2-11.7) 01/27/19 07:17 Neut % (Auto) 48.1 % (50.0-75.0) L 01/27/19 07:17 Lymph % (Auto) 35.7 % (20.0-40.0) 01/27/19 07:17 [place] % (Auto) 12.0 % (0.0-10.0) H 01/27/19 07:17 Eos % (Auto) 3.5 % (0.0-4.0) 01/27/19 07:17 Baso % (Auto) 0.7 % (0.0-2.0) 01/27/19 07:17 Neut # (Auto) 2.4 K/uL (1.8-7.0) 01/27/19 07:17 Lymph # (Auto) 1.8 K/uL (1.0-4.3) 01/27/19 07:17 [place] # (Auto) 0.6 K/uL (0.0-0.8) 01/27/19 07:17 Eos # (Auto) 0.2 K/uL (0.0-0.7) 01/27/19 07:17 Baso # (Auto) 0.0 K/uL (0.0-0.2) 01/27/19 07:17 Sodium 137 mmol/L (132-148) 01/27/19 07:17 Potassium 3.6 mmol/L (3.6-5.2) 01/27/19 07:17 Chloride 106 mmol/L (98-107) 01/27/19 07:17 Carbon Dioxide 25 mmol/L (22-30) 01/27/19 07:17 Anion Gap 10 (10-20) 01/27/19 07:17 BUN 7 mg/dL (7-17) 01/27/19 07:17 Creatinine 0.6 mg/dL (0.7-1.2) L 01/27/19 07:17 Est GFR ( Amer) > 60 01/27/19 07:17 Est GFR (Non-Af Amer) > 60 01/27/19 07:17 Random Glucose 98 mg/dL (65-105) 01/27/19 07:17 Calcium 8.6 mg/dl (8.6-10.4) 01/27/19 07:17 Total Bilirubin 0.2 mg/dL (0.2-1.3) 01/27/19 07:17 AST 45 U/L (14-36) H D 01/27/19 07:17 ALT 29 U/L (9-52) 01/27/19 07:17 Alkaline Phosphatase 89 U/L (38-126) 01/27/19 07:17 Total Protein 6.4 g/dL (6.3-8.3) 01/27/19 07:17 Albumin 3.7 g/dL (3.5-5.0) 01/27/19 07:17 Globulin 2.7 gm/dL (2.2-3.9) 01/27/19 07:17 Albumin/Globulin Ratio 1.4 (1.0-2.1) 01/27/19 07:17 Lipase 144 U/L (23-300) 01/25/19 00:29 Urine Color Yellow (YELLOW) 01/25/19 00:29 Urine Clarity Hazy (Clear) 01/25/19 00:29 Urine pH 6.0 (5.0-8.0) 01/25/19 00:29 Ur Specific [place] 1.030 (1.003-1.030) 01/25/19 00:29 Urine Protein Negative mg/dL (NEGATIVE) 01/25/19 00:29 Urine Glucose (UA) Negative mg/dL (Normal) 01/25/19 00:29 Urine Ketones Negative mg/dL (NEGATIVE) 01/25/19 00:29 Urine Blood Moderate (NEGATIVE) 01/25/19 00:29 Urine Nitrate Negative (NEGATIVE) 01/25/19 00:29 Urine Bilirubin Negative (NEGATIVE) 01/25/19 00:29 Urine Urobilinogen 0.2 mg/dL (0.2-1.0) 01/25/19 00:29 Ur Leukocyte Esterase Negative Shruthi/uL (Negative) 01/25/19 00:29 Urine WBC (Auto) 5 /hpf (0-5) 01/25/19 00:29 Urine RBC (Auto) 16 /hpf (0-3) H 01/25/19 00:29 Ur Squamous Epith Cells 17 /hpf (0-5) H 01/25/19 00:29 Urine Bacteria Rare (<OCC) 01/25/19 00:29 Urine HCG, Qual Negative (NEGATIVE) 01/25/19 00:29 Stool Leukocytes, Qual Negative (NEGATIVE) 01/25/19 15:48 Giardia Antigen Not detected (Not Detected) 01/25/19 15:48 Attending/Attestation - Attestation I have personally seen and examined this patient.: Yes I have fully participated in the care of the patient.: Yes I have reviewed all pertinent clinical information, including history, physical exam and plan: Yes Notes (Text): 01/27/19 15:11 Medical attending: Patient was seen and examined by me. Agree with the above note by the resident The patient was not in any acute distress She appeared well and was with family at bedside She reported tolerating her diet very well She did report very mild tenderness - however only with deep palpation during our exam, otherwise she said she did not have pain at rest and was able to walk fine She should continue to take the Cipro and Flagyl IV Alfa Rosenbaum
== END 2019-01-27 12:53 | disposition home or self-care (01) ==
LOC: C.ER 23:30 → C.9E 01-25 03:53 → C.6T 01-25 04:35
PROVIDERS: ADMIT Hospitalist; ATTEND Hospitalist
DX: K52.9 Noninfective gastroenteritis and colitis, unspecified (principal); E86.0 Dehydration
CPT/HCPCS: 36415; 74177; 80053; 81001; 83690; 84703; 85025; 87045; 87177; 87209; 87329; 89055; 90471; 90732; 96374; 99285; G0378; J0744; J1644; J1885; J7030; Q9966; Q9967